=== PATIENT | male | born 1950 | race Caucasian/White ===

== ENCOUNTER → 2018-01-01 | Outpatient (CLI) | payer MEDICARE ==
[~2018-01-01] MED LIST: ALPR-475 PO; AMIO200T42 PO; AMIO400T5 PO; ASPI-496 PO; ATOR20TA9 PO; FURO-93 PO; HYDR-3307 PO; LOSA50TA6 PO; METO-93 PO; MULT-658 PO; OXYC5TAB3 PO; OXYM30SP18 NS; POTA10TA11 PO; SIMV20TA3 PO; WARF2.5T PO; ZOLP10TA PO
== END | disposition home or self-care (01) ==
LOC: CFH 12:49
PROVIDERS: ATTEND Internal Medicine Cardiovascular Disease
DX: I08.1 Rheumatic disorders of both mitral and tricuspid valves (principal); I10 Essential (primary) hypertension; Z95.2 Presence of prosthetic heart valve
CPT/HCPCS: 93306

== ENCOUNTER → 2018-07-09 | Outpatient (CLI) | payer MEDICARE ==
[~2018-07-09] MED LIST changes: +OMNIPAQUE 350 MG/ML, 100ML BOTTLE ONE
== END | disposition home or self-care (01) ==
LOC: CFH 14:19
PROVIDERS: ATTEND Internal Medicine Cardiovascular Disease
DX: I70.0 Atherosclerosis of aorta (principal)
CPT/HCPCS: 71275; Q9967

== ENCOUNTER → 2018-11-18 | Outpatient (CLI) | payer MEDICARE ==
[~2018-11-18] MED LIST changes: +ATOR20TA37 PO; -ATOR20TA9 PO; +GADOBUTROL 10 MMOL/10 ML VIAL ONE; -LOSA50TA6 PO; +LOSA50TA7 PO; -OMNIPAQUE 350 MG/ML, 100ML BOTTLE ONE
== END | disposition home or self-care (01) ==
LOC: RAD 12:23
PROVIDERS: ATTEND Family Medicine
DX: R42 Dizziness and giddiness (principal)
CPT/HCPCS: 70546; 70549; 70553; A9585

== ENCOUNTER → 2018-11-22 | Outpatient (CLI) | payer MEDICARE ==
[~2018-11-22] MED LIST changes: -GADOBUTROL 10 MMOL/10 ML VIAL ONE
== END | disposition home or self-care (01) ==
LOC: CVU 08:59
PROVIDERS: ATTEND Family Medicine
DX: I70.298 Other atherosclerosis of native arteries of extremities, other extremity (principal); I71.2 Thoracic aortic aneurysm, without rupture; I73.9 Peripheral vascular disease, unspecified; I10 Essential (primary) hypertension; Z95.4 Presence of other heart-valve replacement; Z87.891 Personal history of nicotine dependence
CPT/HCPCS: 93922; 93925

== ENCOUNTER 2019-05-10 11:04 | Emergency (ER) | payer MEDICARE ==
[~2019-05-10] VITALS: Ht 188 cm; Wt 104.4 kg
[~2019-05-10 11:04] MED LIST changes: +LOSA50TA14 PO; -LOSA50TA7 PO
[2019-05-10 11:58] LABS: BASOPHILS # (AUTO) 0.02 x10^3/uL (0-0.1); BASOPHILS % (AUTO) 0 % (0-1); EOSINOPHILS # (AUTO) 0.07 x10^3/uL (0-0.4); EOSINOPHILS % (AUTO) 1 % (1-7); LYMPHOCYTES # (AUTO) 1.04 x10^3/uL (1-3.4); LYMPHOCYTES % (AUTO) 17 % (22-44); MD NO; MEAN CORPUSCULAR HEMOGLOBIN 31.4 pg (27.5-34.5); MEAN CORPUSCULAR HGB CONC 32.8 g/dL (33.2-36.2); MEAN CORPUSCULAR VOLUME 95.6 fL (81-97); MEAN PLATELET VOLUME 9.6 fL (7.4-10.4); MONOCYTES # (AUTO) 0.51 x10^3/uL (0.2-0.8); MONOCYTES % (AUTO) 8 % (2-9); NEUTROPHILS # (AUTO) 4.64 x10^3/uL (1.8-6.8); NEUTROPHILS % (AUTO) 74 % (42-75); PLATELET COUNT 182 x10^3/uL (130-400); RED BLOOD COUNT 4.78 x10^6/uL (4.38-5.82)
--- NOTE | 2019-05-10 12:00 | NUR ---
PT TO ROOM FROM LOBBY, GAIT STEADY
--- NOTE | 2019-05-10 12:04 | NUR ---
69 YR OLD MALE HERE WITH C/O "I'M HAVING TROUBLE SLEEPING, I WAKE UP ABOUT EVERY HOUR. FOR LAST COUPLE OF MONTHS, I WAKE UP AND FEEL REALLY CRAPPY, NAUSEATED, DIZZY AND INCREASED URGENCY TO PEE" DENIES CP. PT PLACED ON MONITORS, AUTO BP AND PULSE OX MONITOR.
[2019-05-10 12:09] LABS: ALANINE AMINOTRANSFERASE 37 U/L (12-78); ALBUMIN 3.9 g/dL (3.4-5.0); ANION GAP 9 mmol/L (5-15); CHLORIDE 107 mmol/L (98-107); CREATININE 0.95 mg/dL (0.7-1.3)
[2019-05-10 12:11] LABS: ALKALINE PHOSPHATASE 58 U/L (45-117); BILIRUBIN,TOTAL 0.5 mg/dL (0.2-1.0); TOTAL PROTEIN 6.8 g/dL (6.4-8.2)
--- NOTE | 2019-05-10 13:11 | NUR ---
REPORT TO RAYMOND REARDON
--- NOTE | 2019-05-10 13:11 | NUR ---
MD TO BEDSIDE TO RECHECK PT AND UPDATE ON POC.
[2019-05-10 13:36] VITALS: BP 147/55
== END 2019-05-10 13:38 | disposition home or self-care (01) ==
LOC: ED 13:30
DX: I49.3 Ventricular premature depolarization (principal); R42 Dizziness and giddiness; I48.91 Unspecified atrial fibrillation; I10 Essential (primary) hypertension; E78.5 Hyperlipidemia, unspecified; Z87.891 Personal history of nicotine dependence
CPT/HCPCS: 36415; 80053; 85025; 93005; 99284

== ENCOUNTER 2020-08-07 12:23 | Outpatient (CLI) | payer MEDICARE ==
[~2020-08-07 12:23] MED LIST changes: -ALPR-475 PO; +ALPR0.5T7 PO; +HYDR-3246 PO; -HYDR-3307 PO; +MECL-101 PO; +ONDA4TAB13 SL; +SIMV20TA19 PO; -SIMV20TA3 PO; -WARF2.5T PO; +WARF2.5T2 PO
== END 2020-08-07 23:59 | disposition home or self-care (01) ==
LOC: CARD 12:23
PROVIDERS: ATTEND Family Medicine
DX: R06.02 Shortness of breath (principal)
CPT/HCPCS: 94060; 94726; 94729

== ENCOUNTER → 2020-08-21 | Outpatient (CLI) | payer MEDICARE ==
[~2020-08-21] MED LIST changes: +OMNIPAQUE 350 MG/ML, 100ML BOTTLE ONE
== END | disposition home or self-care (01) ==
LOC: CFH 08:41
PROVIDERS: ATTEND Internal Medicine Cardiovascular Disease
DX: I70.0 Atherosclerosis of aorta (principal); I25.10 Atherosclerotic heart disease of native coronary artery without angina pectoris; R06.00 Dyspnea, unspecified; I71.9 Aortic aneurysm of unspecified site, without rupture; M51.34 Other intervertebral disc degeneration, thoracic region; Z95.2 Presence of prosthetic heart valve
CPT/HCPCS: 71275; 82565; Q9967

== ENCOUNTER → 2020-11-01 | Outpatient (CLI) | payer MEDICARE ==
[~2020-11-01] MED LIST changes: -OMNIPAQUE 350 MG/ML, 100ML BOTTLE ONE
== END | disposition home or self-care (01) ==
LOC: CVU 15:35
PROVIDERS: ATTEND Internal Medicine Cardiovascular Disease
DX: I37.1 Nonrheumatic pulmonary valve insufficiency (principal); I11.9 Hypertensive heart disease without heart failure; Z95.2 Presence of prosthetic heart valve
CPT/HCPCS: 93306